=== PATIENT | male | born 1975 | race Caucasian/White ===

== ENCOUNTER 2017-06-10 00:30 | Emergency (ER) | payer SELFPAY ==
[2017-06-10] MEDS ORDERED: Acetaminophen 325 MG Tab PO ONE (00:39)
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
[2017-06-10] MEDS ORDERED: Ketorolac 30 MG/ML SDV IVPUSH ONE (01:50)
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
== END 2017-06-10 02:40 | disposition home or self-care (01) ==
LOC: MW.ED 00:30
DX: S06.0X9A Concussion with loss of consciousness of unspecified duration, initial encounter (principal); S00.83XA Contusion of other part of head, initial encounter; Y04.2XXA Assault by strike against or bumped into by another person, initial encounter
CPT/HCPCS: 70450; 70486; 73020; 82962; 96374; 99285; A9270; J1885